=== PATIENT | female | born 1980 | race Caucasian/White ===

== ENCOUNTER → 2024-08-21 16:06 | Outpatient (REF) | payer OTHER, SELFPAY | LOC: WDC 16:06 | PROVIDERS: ATTENDING PHYSICIAN Obstetrics & Gynecology; FAMILY PHYSICIAN Family Medicine | DX: Z12.31 Encounter for screening mammogram for malignant neoplasm of breast (principal) | CPT/HCPCS: 77063; 77067 ==

== ENCOUNTER 2025-04-23 06:24 | Day surgery (SDC) | payer OTHER, SELFPAY | END 2025-04-23 11:40 | disposition home or self-care (01) | LOC: GI 06:24 | PROVIDERS: ATTENDING PHYSICIAN Internal Medicine Gastroenterology | DX: Z12.11 Encounter for screening for malignant neoplasm of colon (principal); K51.50 Left sided colitis without complications; K57.30 Diverticulosis of large intestine without perforation or abscess without bleeding; K64.8 Other hemorrhoids; Q43.8 Other specified congenital malformations of intestine | CPT/HCPCS: 45380; 88305 ==

== ENCOUNTER → 2025-08-26 16:06 | Outpatient (REF) | payer OTHER, SELFPAY | LOC: WDC 16:06 | PROVIDERS: ATTENDING PHYSICIAN Obstetrics & Gynecology; FAMILY PHYSICIAN Family Medicine | DX: Z12.31 Encounter for screening mammogram for malignant neoplasm of breast (principal) | CPT/HCPCS: 77063; 77067 ==